=== PATIENT | female | born 1955 | race Caucasian/White ===

== ENCOUNTER 2017-06-12 15:01 | Emergency (ER) | payer BC, OTHER ==
[~2017-06-12] VITALS: Ht 160 cm; Wt 47.6 kg
--- NOTE | ~2017-06-12 | EKG ---
[address] [place] [address] ELECTROCARDIOGRAM REPORT Name: SHERIDANSTEVIE CRUZ Tatyana Room [facility] [id number] Admission: 06/12/17 Attend Phys: Discharge: 06/12/17 Date of : 55 Report #: [id number] THIS REPORT FOR: //name// [facility] ED Test Date: 2017-06-12 Test Time: 15:32:03 Pat Name: STEVIE SWARTZ Department: Room: Gender: F Integrity Manager: Nathan ALEXANDER : 1955 Requested By: Kedar Mir Order Number: [id number] MD: Du Barber Measurements Intervals [place] Rate: 75 P: 79 DE: 141 QRS: 84 QRSD: 93 T: 66 QT: 408 QTc: 456 Interpretive Statements Sinus rhythm Poor R wave progression No previous ECG available for comparison Electronically Signed On 06-13-2017 8:12:25 CDT by Du Barber [email or web address] <ELECTRONICALLY SIGNED> By: Du Barber MD, [facility] 06/13/17 0812 1532 1532 Du Barber MD, FACC /EPI
[2017-06-12 15:56] LABS: HEMATOCRIT 39.2 % (37.0-47.0); HEMOGLOBIN 13.6 gm/dL (12.0-15.0); MCH 31.4 pg (26.0-34.0); MCHC 34.7 g/dL (28.0-37.0); MCV 90.4 fL (80.0-100.0); RBC 4.34 mil/uL (4.20-5.00); RDW 12.1 % (10.5-14.5); WBC 9.7 thou/uL (4.0-11.0)
[2017-06-12 16:02] LABS: ANION GAP 6 mmol/L (7-16); BUN 16 mg/dL (7-18); CALCIUM 8.9 mg/dL (8.5-10.1); CHLORIDE 106 mmol/L (98-107); CO2 29 mmol/L (21-32); GLUCOSE 138 mg/dL (74-106); POTASSIUM 3.8 mmol/L (3.5-5.1); SODIUM 141 mmol/L (136-145)
[2017-06-12 16:10] LABS: TROPONIN-I < 0.04 ng/mL (<0.04-0.07)
[2017-06-12 16:16] LABS: ALBUMIN 3.5 g/dL (3.4-5.0); ALKALINE PHOSPHATASE 78 U/L (46-116); DIRECT BILIRUBIN < 0.1 mg/dL (<0.1-0.3); SGOT 20 U/L (15-37); SGPT 21 U/L (30-65); TOTAL BILIRUBIN 0.3 mg/dL (<0.1-1.0); TOTAL PROTEIN 6.5 g/dL (6.4-8.2)
[2017-06-12 17:48] VITALS: BP 142/66
== END 2017-06-12 17:48 | disposition home or self-care (01) ==
LOC: ER 15:01
PROVIDERS: Emergency Medicine
DX: E86.0 Dehydration (principal); Z88.1 Allergy status to other antibiotic agents; Z91.041 Radiographic dye allergy status